=== PATIENT | female | born 1995 | race Caucasian/White ===

== ENCOUNTER 2017-02-21 20:02 | Emergency (ER) | payer BC ==
[2017-02-21] MEDS ORDERED: Acetaminophen/HYDROcodone 325-7.5 MG Tab PO ONE (20:26)
--- NOTE | 2017-02-21 20:29 | EDM.PDOC ---
ED HPI GENERAL MEDICAL PROBLEM - General Chief Complaint: Upper Extremity Injury/Pain Stated Complaint: PAIN RT ARM/ELBOW Time Seen by Provider: 02/21/17 20:19 - History of Present Illness INITIAL COMMENTS - FREE TEXT/NARRATIVE: HISTORY AND PHYSICAL: History of present illness: The patient is a healthy 21-year-old female who presents after slipping and falling while fishing landing onto her right elbow. She was days from the pain but did not pass out or black out and has no head neck or back pain and no other extremity pain. Prior to these events she was in her usual state of good health and had no systemic issues. The patient is right-hand dominant. She complains of pain at the right elbow which is her primary concern but also some discomfort at the dorsal aspect of her right hand and her clavicle area. She has no forearm pain and no neurosensory changes in her fingers. All other extremities are without tenderness and she did not take anything for the pain prior to coming here. She denies any prior injuries on this extremity. Review of systems: As per history of present illness and below otherwise all systems reviewed and negative. Past medical history: As per history of present illness and as reviewed below otherwise noncontributory. Surgical history: As per history of present illness and as reviewed below otherwise noncontributory. Social history: No reported history of drug or alcohol abuse. Family history: As per history of present illness and as reviewed below otherwise noncontributory. Physical exam: General: Well-developed well-nourished female who is nontoxic and speaking clearly and easily. HEENT: Atraumatic, normocephalic, there is a superficial scratch which looks nonacute underneath her right eye the patient states that have been previously not with this injury, negative for conjunctival pallor or scleral icterus, mucous membranes moist, throat clear, neck supple, nontender, trachea midline. Lungs: Clear to auscultation, breath sounds equal bilaterally, chest nontender. Heart: S1S2, regular in rhythm no overt murmurs Abdomen: Soft, nondistended, nontender. NABS. Pelvis: Stable nontender. Genitourinary: Deferred. Rectal: Deferred. Extremities: Atraumatic appearing throughout all extremities with tenderness at the proximal ulna/olecranon area without chemosis swelling or deformities, tenderness at the dorsal aspect of the proximal hand without any defects deformities ecchymosis or erythema and some minimal tenderness at the right clavicle without any deformities. Neurovascular is intact and all compartments are soft. All other extremities have full range of motion without defects or deficits The legs are, negative for cords or calf pain. Neurovascular unremarkable. Neuro: Awake, alert, oriented. Cranial nerves II through XII unremarkable. Cerebellum unremarkable. Motor and sensory unremarkable throughout. Exam nonfocal. Diagnostics: X-ray right clavicle elbow and hand Therapeutics: Scottie Cosme Impression: Contusion to right elbow hand and clavicle status post fall Definitive disposition and diagnosis as appropriate pending reevaluation and review of above. Right Elbow Pain Score (Numeric/FACES): 8 - Related Data Allergies Allergy/AdvReac Type Severity Reaction Status Date / Time No Known Allergies Allergy Verified 02/21/17 20:11 Home Meds: Home Meds . [No Known Home Meds] 02/21/17 [History] Past Medical History Musculoskeletal History: Reports: Fracture - Past Surgical History Musculoskeletal Surgical History: Reports: Other (see below) Other Musculoskeletal Surgeries/Procedures:: surgery left arm Social & Family History - Family History Family Medical History: Noncontributory - Tobacco Use Years of Tobacco use: 3 Packs/Tins Daily: 0.5 - Caffeine Use Caffeine Use: Reports: Coffee Caffeine Use Comment: 1 daily - Recreational Drug Use Recreational Drug Use: No Review of Systems - Review of Systems Review Of Systems: ROS reveals no pertinent complaints other than HPI. Trauma Exam - Physical Exam Exam: See Below (See dictation) Course - Vital Signs Last Recorded V/S: Last Vital Signs Temp 36.8 C 02/21/17 20:11 Pulse 84 02/21/17 20:11 Resp 18 02/21/17 20:11 BP 129/75 02/21/17 20:11 Pulse Ox 100 02/21/17 20:11 - Orders/Labs/Meds Orders: Active Orders 24 hr Category Date Time Status Clavicle Rt [CR] Stat Exams 02/21/17 20:25 Taken Elbow Min 3V Rt [CR] Stat Exams 02/21/17 20:25 Taken Hand Comp Min 3V Rt [CR] Stat Exams 02/21/17 20:25 Taken Meds: Medications Discontinued Medications Generic Name Dose Route Start Last Admin Trade Name Freq PRN Reason Stop Dose Admin Hydrocodone Bitart/Acetaminophen 1 tab 02/21/17 20:26 02/21/17 20:36 [facility] 325-7.5 Mg PO 02/21/17 20:27 1 tab ONETIME ONE Administration Departure - Departure Time of Disposition: 21:06 Disposition: Home, Self-Care 01 Condition: good Clinical Impression: Contusion of hand Qualifiers: Encounter type: initial encounter Laterality: right Qualified Code(s): S60.221A - Contusion of right hand, initial encounter Contusion of elbow Qualifiers: Encounter type: initial encounter Laterality: right Qualified Code(s): S50.01XA - Contusion of right elbow, initial encounter - Discharge Information Forms: ED Department Discharge Additional Instructions: The following information is given to patients seen in the emergency department who are being discharged to home. This information is to outline your options for follow-up care. We provide all patients seen in our emergency department with a follow-up referral. The need for follow-up, as well as the timing and circumstances, are variable depending upon the specifics of your emergency department visit. If you don't have a primary care physician on staff, we will provide you with a referral. We always advise you to contact your personal physician following an emergency department visit to inform them of the circumstance of the visit and for follow-up with them and/or the need for any referrals to a consulting specialist. The emergency department will also refer you to a specialist when appropriate. This referral assures that you have the opportunity for followup care with a specialist. All of these measure are taken in an effort to provide you with optimal care, which includes your followup. Under all circumstances we always encourage you to contact your private physician who remains a resource for coordinating your care. When calling for followup care, please make the office aware that this follow-up is from your recent emergency room visit. If for any reason you are refused follow-up, please contact the [facility] emergency department at and ask to speak to the emergency department charge nurse. [facility] Primary care- Internal Medicine and Family [facility] [address] [place] [id number] [facility] Specialty Care--Orthopedic clinic Professional Building [address] [place] [id number] Use sling for the next 3 days but intermittently please remove and move around so that the area does not become stiff. Ice and elevate as much as possible. Use [id number] medications such as Tylenol or ibuprofen for pain. Please call and followup with orthopedics clinic or primary care and returned to the ER as needed and as discussed - My Orders Last 24 Hours: My Active Orders 02/21/17 20:25 Clavicle Rt [CR] Stat Elbow Min 3V Rt [CR] Stat Hand Comp Min 3V Rt [CR] Stat - Assessment/Plan Last 24 Hours: My Active Orders 02/21/17 20:25 Clavicle Rt [CR] Stat Elbow Min 3V Rt [CR] Stat Hand Comp Min 3V Rt [CR] Stat
[2017-02-21 21:20] VITALS: BP 125/70
--- NOTE | 2017-02-22 13:52 | CR ---
EXAM DATE: 02/21/17 PATIENT'S AGE: 21 Patient: PREET YUN Facility: [place], [place] Site . Site : 1996 Study: XRay Extremity Right elbow [id number]/10/2017 8:56:20 PM Ordering Physician: Peyman Brito Final Report: INDICATION: Trauma. Patient fell. COMPARISON: none TECHNIQUE: Three-view right elbow FINDINGS: The bones are anatomically aligned. There is no evidence of fracture, erosion or intrinsic bone lesion. There is no evidence of displacement of the posterior fat pad. IMPRESSION: Negative right elbow. Dictated by Vic Felton MD @ Feb 21 2017 8:57PM (Electronic Signature) Report Signed by Proxy. TRICIA
--- NOTE | 2017-02-22 13:54 | CR ---
EXAM DATE: 02/21/17 PATIENT'S AGE: 21 Patient: PREET YUN Facility: [place], [place] Site . Site : 1996 Study: XRay Extremity Right HAND [id number]/10/2017 8:57:01 PM Ordering Physician: Peyman Brito Final Report: INDICATION: Trauma, patient fell. TECHNIQUE: Hand radiograph 3 views COMPARISON: None FINDINGS: Bones: Alignment is normal. No acute fractures or aggressive osseous lesions seen. Joint spaces: The carpal and metacarpal-phalangeal joints are unremarkable in appearance. The interphalangeal joints are normal in appearance. Soft tissues: Unremarkable. No radiopaque foreign bodies are noted. IMPRESSION: 1. Negative right hand series. Dictated by Zane Lindsey MD @ 02/21/2017 9:00:53 PM Dictated by: Zane Lindsey MD @ 02/21/2017 21:00:59 (Electronic Signature) Report Signed by Proxy. TRICIA
--- NOTE | 2017-02-22 13:54 | CR ---
EXAM DATE: 02/21/17 PATIENT'S AGE: 21 Patient: PREET YUN Facility: [place], [place] Site . Site : 1995 Study: XRay Shoulder Right CLAVICLE [id number]/10/2017 8:57:50 PM Ordering Physician: Peyman Brito Final Report: INDICATION: Shoulder pain TECHNIQUE: Clavicle radiographs 2 views COMPARISON: None FINDINGS: Bones: Alignment is normal. No acute fractures or aggressive osseous lesions seen. Joint spaces: The glenohumeral joint is unremarkable. The acromioclavicular (AC ) joint is normal in appearance. The visualized sternoclavicular joint is normal in appearance. Soft tissues: The visualized hemithorax is unremarkable in appearance. IMPRESSION: 1. No acute right clavicle fracture or disruption of the right AC joint. Dictated by Zane Lindsey MD @ 02/21/2017 9:03:21 PM Dictated by: Zane Lindsey MD @ 02/21/2017 21:03:30 (Electronic Signature) Report Signed by Proxy. [facility] CENTERHeri
== END 2017-02-21 21:18 | disposition home or self-care (01) ==
LOC: MW.ED 20:02
DX: S50.01XA Contusion of right elbow, initial encounter (principal); S60.221A Contusion of right hand, initial encounter; Z98.890 Other specified postprocedural states; W01.0XXA Fall on same level from slipping, tripping and stumbling without subsequent striking against object, initial encounter; Y93.89 Activity, other specified
CPT/HCPCS: 73000; 73080; 73130; 99283; A9270

== ENCOUNTER 2017-06-19 07:13 | Emergency (ER) | payer BC ==
[2017-06-19] MEDS ORDERED: Sodium Chloride 0.9% 1,000 ML IV ONE (07:33)
[2017-06-19] MEDS ORDERED: Sodium Chloride 0.9% 10 ML Syringe FLUSH PRN (07:33)
[2017-06-19] MEDS ORDERED: Ketorolac 30 MG/ML SDV IVPUSH ONE (07:33)
[2017-06-19] MEDS ORDERED: Sodium Chloride 0.9% 2.5 ML Syringe FLUSH PRN (07:33)
--- NOTE | 2017-06-19 07:37 | EDM.PDOC ---
ED HPI GENERAL MEDICAL PROBLEM - General Chief Complaint: Abdominal Pain Stated Complaint: ABDOMINAL PAIN Time Seen by Provider: 06/19/17 07:19 - History of Present Illness INITIAL COMMENTS - FREE TEXT/NARRATIVE: HISTORY AND PHYSICAL: History of present illness: The patient is a 22-year-old female with no stated medical or surgical history and presents with complaints of persistent episodic right upper quadrant pain associated with bloating has been ongoing since October, 9 months so far. She's been seen at the walk-in clinic several times and was also connected with a provider at [facility], ; he saw her in May and ordered a gallbladder ultrasound which was performed on June 01 and those results of been reviewed by me. The ultrasound indicated no stones no gallbladder wall thickening or pericholecystic fluid with the common bile duct was borderline at 6 mm. The patient had no blood work at that time and says that she has not scheduled a repeat appointment with him. The patient was referred to [facility] in [place] For allergy testing for gluten issues which she did on Sunday and she was told that everything was negative. Again she does not have follow- up scheduled. She presents today to the ED with persistent episodic right upper abdominal pain which she describes as crampy deep and dull. She says she has been feeling more bloated and nauseated over the last 2 days She says she has episodes of pain mostly after eating and it never awakens her from sleep. She says it does not last for prolonged period time goes away on its own. She does not connected to any specific foods and she does not take any aqyq-bll-dsspipe medications for it. There is no fever chills vomiting or diarrhea associated with it and she says that the remainder of her upper abdomen is just "tender". Patient's last bowel movement was yesterday but she says she is more on the constipated side in general and it is not black or bloody. Review of systems: As per history of present illness and below otherwise all systems reviewed and negative. Past medical history: As per history of present illness and as reviewed below otherwise noncontributory. Surgical history: As per history of present illness and as reviewed below otherwise noncontributory. Social history: No reported history of drug or alcohol abuse. Family history: As per history of present illness and as reviewed below otherwise noncontributory. Physical exam: General: Well-developed thin female who is nontoxic and vital signs of been reviewed by me. She moves easily in the ED without distress HEENT: Atraumatic, normocephalic, pupils reactive, negative for conjunctival pallor or scleral icterus, mucous membranes moist, throat clear, neck supple, nontender, trachea midline. Lungs: Clear to auscultation, breath sounds equal bilaterally, chest nontender. Heart: S1S2, regular, negative for clicks, rubs, or JVD. Abdomen: Soft, nondistended, minimally tender on deep palpation in the right upper and epigastric areas there is no rebound or guarding and bowel sounds are hypoactive. Negative for masses or hepatosplenomegaly. Negative for costovertebral tenderness. Pelvis: Stable nontender. Genitourinary: Deferred. Rectal: Deferred. Extremities: Atraumatic, negative for cords or calf pain. Neurovascular unremarkable. Neuro: Awake, alert, oriented. Cranial nerves II through XII unremarkable. Cerebellum unremarkable. Motor and sensory unremarkable throughout. Exam nonfocal. Diagnostics: CBC CMP amylase lipase UA UCG CT scan of the abdomen and pelvis Therapeutics: IV fluids Toradol Patient is aware of all testing results and I have discussed with her follow- up. She says that she is not connected with [facility] and that she would be willing to follow-up in our clinic. I will get her an appointment with one of our clinic providers and give her a prescription for a HIDA scan as that is the one test that has not been performed that could be related to her pain. She is aware of need to eat a low-fat diet and to keep her appointments and to schedule the HIDA scan. I will give her tramadol and Zofran to use as needed for home. Advised on reasons to return Patient was given an appointment to see Dr. Hu in the clinic this at 2 PM Impression: Episodic upper abdominal pain subacute Definitive disposition and diagnosis as appropriate pending reevaluation and review of above. Right Upper Epigastric Pain Score (Numeric/FACES): 8 - Related Data Allergies Allergy/AdvReac Type Severity Reaction Status Date / Time No Known Allergies Allergy Verified 02/21/17 20:11 Home Meds: Home Meds Anexity Med 1 tab PO ASDIRECTED 06/19/17 [History] L.acidoph,Paracasei, B.lactis [Probiotic] 1 each PO DAILY 06/19/17 [History] Norethindrone-E.estradiol-Iron [Tri-Legest Fe-28 Day] 1 each PO DAILY 06/19/17 [ History] Past Medical History - Past Health History Medical/Surgical History: Denies Medical/Surgical History Musculoskeletal History: Reports: Fracture - Past Surgical History Musculoskeletal Surgical History: Reports: Other (See Below) Social & Family History - Family History Family Medical History: Noncontributory - Tobacco Use Smoking Status *Q: Never Smoker Years of Tobacco use: 3 Packs/Tins Daily: 0.5 Second Hand Smoke Exposure: No - Caffeine Use Caffeine Use: Reports: Coffee Caffeine Use Comment: 1 daily - Recreational Drug Use Recreational Drug Use: No ED ROS GENERAL - Review of Systems Review Of Systems: ROS reveals no pertinent complaints other than HPI. ED EXAM, GENERAL - Physical Exam Exam: See Below (See dictation) Course - Vital Signs Last Recorded V/S: Last Vital Signs Temp 36.3 C 06/19/17 10:01 Pulse 69 06/19/17 10:01 Resp 18 06/19/17 10:01 BP 113/72 06/19/17 10:01 Pulse Ox 100 06/19/17 10:01 - Orders/Labs/Meds Orders: Active Orders 24 hr Category Date Time Status Sodium Chloride 0.9% [Saline Flush] Med 06/19/17 07:33 Active 10 ml FLUSH ASDIRECTED PRN Sodium Chloride 0.9% [Saline Flush] Med 06/19/17 07:33 Active 2.5 ml FLUSH ASDIRECTED PRN Saline Lock Insert [OM.PC] Stat Oth 06/19/17 07:32 Ordered Medication Orders Sodium Chloride (Saline Flush) 10 ml FLUSH ASDIRECTED PRN PRN Reason: Keep Vein Open Sodium Chloride (Saline Flush) 2.5 ml FLUSH ASDIRECTED PRN PRN Reason: Keep Vein Open Labs: Laboratory Tests 06/19/17 06/19/17 06/19/17 Range/Units 07:55 07:55 08:09 WBC 7.68 (4.0-11.0) K/uL RBC 4.80 (4.30-5.90) M/uL Hgb 13.1 (12.0-16.0) g/dL Hct 39.8 (36.0-46.0) % MCV 82.9 (80.0-98.0) fL MCH 27.3 (27.0-32.0) pg MCHC 32.9 (31.0-37.0) g/dL RDW Std Deviation 42.6 (28.0-62.0) fl RDW Coeff of Stephanie 14 (11.0-15.0) % Plt Count 324 (150-400) K/uL MPV 10.10 (7.40-12.00) fL Neut % (Auto) 61.5 (48.0-80.0) % Lymph % (Auto) 29.7 (16.0-40.0) % [place] % (Auto) 7.3 (0.0-15.0) % Eos % (Auto) 1.2 (0.0-7.0) % Baso % (Auto) 0.3 (0.0-1.5) % Neut # (Auto) 4.7 (1.4-5.7) K/uL Lymph # (Auto) 2.3 (0.6-2.4) K/uL [place] # (Auto) 0.6 (0.0-0.8) K/uL Eos # (Auto) 0.1 (0.0-0.7) K/uL Baso # (Auto) 0.0 (0.0-0.1) K/uL Nucleated RBC % 0.0 /100WBC Nucleated RBCs # 0 K/uL Sodium 138 (136-146) mmol/L Potassium 3.8 (3.5-5.1) mmol/L Chloride 104 (98-110) mmol/L Carbon Dioxide 21 (21-31) mmol/L BUN 10 (6.0-23.0) mg/dL Creatinine 0.9 (0.6-1.5) mg/dL Est Cr Clr Drug Dosing 92.56 mL/min Estimated GFR (MDRD) > 60.0 ml/min Glucose 99 (60-110) mg/dL Calcium 9.7 (8.8-10.8) mg/dL Total Bilirubin 0.2 (0.1-1.5) mg/dL AST 16 (5-40) IU/L ALT 15 (8-54) IU/L Alkaline Phosphatase 70 (40-150) Total Protein 8.2 H (6.0-8.0) g/dL Albumin 4.4 (3.5-5.0) g/dL Globulin 3.8 H (2.0-3.5) g/dL Albumin/Globulin Ratio 1.2 L (1.3-2.8) Amylase 44 (10-90) U/L Lipase 15 (7-80) U/L Urine Color Urine Appearance Urine pH (5.0-8.0) Ur Specific [place] (1.001-1.035) Urine Protein (NEGATIVE) mg/dL Urine Glucose (UA) (NEGATIVE) mg/dL Urine Ketones (NEGATIVE) mg/dL Urine Occult Blood (NEGATIVE) Urine Nitrite (NEGATIVE) Urine Bilirubin (NEGATIVE) Urine Urobilinogen (<2.0) EU/dL Ur Leukocyte Esterase (NEGATIVE) Urine RBC (0-2/HPF) Urine WBC (0-5/HPF) Ur Epithelial Cells (NONE-FEW) Calcium Oxalate Crystal (NEGATIVE) Urine Bacteria (NEGATIVE) Urine Mucus (NONE-MOD) Urine HCG, Qual NEGATIVE (NEGATIVE) 06/19/17 Range/Units 08:09 WBC (4.0-11.0) K/uL RBC (4.30-5.90) M/uL Hgb (12.0-16.0) g/dL Hct (36.0-46.0) % MCV (80.0-98.0) fL MCH (27.0-32.0) pg MCHC (31.0-37.0) g/dL RDW Std Deviation (28.0-62.0) fl RDW Coeff of Stephanie (11.0-15.0) % Plt Count (150-400) K/uL MPV (7.40-12.00) fL Neut % (Auto) (48.0-80.0) % Lymph % (Auto) (16.0-40.0) % [place] % (Auto) (0.0-15.0) % Eos % (Auto) (0.0-7.0) % Baso % (Auto) (0.0-1.5) % Neut # (Auto) (1.4-5.7) K/uL Lymph # (Auto) (0.6-2.4) K/uL [place] # (Auto) (0.0-0.8) K/uL Eos # (Auto) (0.0-0.7) K/uL Baso # (Auto) (0.0-0.1) K/uL Nucleated RBC % /100WBC Nucleated RBCs # K/uL Sodium (136-146) mmol/L Potassium (3.5-5.1) mmol/L Chloride (98-110) mmol/L Carbon Dioxide (21-31) mmol/L BUN (6.0-23.0) mg/dL Creatinine (0.6-1.5) mg/dL Est Cr Clr Drug Dosing mL/min Estimated GFR (MDRD) ml/min Glucose (60-110) mg/dL Calcium (8.8-10.8) mg/dL Total Bilirubin (0.1-1.5) mg/dL AST (5-40) IU/L ALT (8-54) IU/L Alkaline Phosphatase (40-150) Total Protein (6.0-8.0) g/dL Albumin (3.5-5.0) g/dL Globulin (2.0-3.5) g/dL Albumin/Globulin Ratio (1.3-2.8) Amylase (10-90) U/L Lipase (7-80) U/L Urine Color YELLOW Urine Appearance CLEAR Urine pH 5.5 (5.0-8.0) Ur Specific [place] >= 1.030 (1.001-1.035) Urine Protein NEGATIVE (NEGATIVE) mg/dL Urine Glucose (UA) NEGATIVE (NEGATIVE) mg/dL Urine Ketones NEGATIVE (NEGATIVE) mg/dL Urine Occult Blood NEGATIVE (NEGATIVE) Urine Nitrite NEGATIVE (NEGATIVE) Urine Bilirubin NEGATIVE (NEGATIVE) Urine Urobilinogen 0.2 (<2.0) EU/dL Ur Leukocyte Esterase NEGATIVE (NEGATIVE) Urine RBC NONE SEEN (0-2/HPF) Urine WBC 0-1 (0-5/HPF) Ur Epithelial Cells FEW (NONE-FEW) Calcium Oxalate Crystal MODERATE (NEGATIVE) Urine Bacteria FEW (NEGATIVE) Urine Mucus LIGHT (NONE-MOD) Urine HCG, Qual (NEGATIVE) Meds: Medications Generic Name Dose Route Start Last Admin Trade Name Freq PRN Reason Stop Dose Admin Sodium Chloride 10 ml 06/19/17 07:33 Saline Flush FLUSH ASDIRECTED PRN Keep Vein Open Sodium Chloride 2.5 ml 06/19/17 07:33 Saline Flush FLUSH ASDIRECTED PRN Keep Vein Open Discontinued Medications Generic Name Dose Route Start Last Admin Trade Name Harsha PRN Reason Stop Dose Admin Sodium Chloride 1,000 mls @ 999 mls/hr 06/19/17 07:33 06/19/17 08:01 Normal Saline IV 06/19/17 08:33 999 mls/hr STAT ONE Administration Iopamidol 85 ml 06/19/17 08:49 06/19/17 08:49 Isovue Multipack-370 (76%) IVPUSH 06/19/17 08:50 85 ml ONETIME STA Administration Ketorolac Tromethamine 30 mg 06/19/17 07:33 06/19/17 08:04 Toradol IVPUSH 06/19/17 07:34 30 mg ONETIME ONE Administration Ondansetron HCl 4 mg 06/19/17 07:39 06/19/17 08:04 Zofran IVPUSH 06/19/17 07:40 4 mg ONETIME ONE Administration Departure - Departure Time of Disposition: 09:53 Disposition: Home, Self-Care 01 Condition: Good Clinical Impression: Abdominal pain Qualifiers: Abdominal location: right upper quadrant Qualified Code(s): R10.11 - Right upper quadrant pain - Discharge Information Referrals: PCP,None [Primary Care Provider] - Forms: ED Department Discharge Additional Instructions: The following information is given to patients seen in the emergency department who are being discharged to home. This information is to outline your options for follow-up care. We provide all patients seen in our emergency department with a follow-up referral. The need for follow-up, as well as the timing and circumstances, are variable depending upon the specifics of your emergency department visit. If you don't have a primary care physician on staff, we will provide you with a referral. We always advise you to contact your personal physician following an emergency department visit to inform them of the circumstance of the visit and for follow-up with them and/or the need for any referrals to a consulting specialist. The emergency department will also refer you to a specialist when appropriate. This referral assures that you have the opportunity for followup care with a specialist. All of these measure are taken in an effort to provide you with optimal care, which includes your followup. Under all circumstances we always encourage you to contact your private physician who remains a resource for coordinating your care. When calling for followup care, please make the office aware that this follow-up is from your recent emergency room visit. If for any reason you are refused follow-up, please contact the [facility] emergency department at and ask to speak to the emergency department charge nurse. [facility] Primary care- Internal Medicine and Family [address] [address] Please eat a low-fat diet and avoid caffeinated products and spicy foods. Please schedule the HIDA scan as we discussed. Return to ER as needed as discussed. Use all medications as prescribed and please keep your appointment in the clinic as directed. Your appointment is in our clinic with Dr. Hu this June 21 at 2 PM. Please arrive 15 minutes early to complete paperwork - My Orders Last 24 Hours: My Active Orders 06/19/17 07:32 Saline Lock Insert [OM.PC] Stat 06/19/17 07:33 Sodium Chloride 0.9% [Saline Flush] 10 ml FLUSH ASDIRECTED PRN Sodium Chloride 0.9% [Saline Flush] 2.5 ml FLUSH ASDIRECTED PRN - Assessment/Plan Last 24 Hours: My Active Orders 06/19/17 07:32 Saline Lock Insert [OM.PC] Stat 06/19/17 07:33 Sodium Chloride 0.9% [Saline Flush] 10 ml FLUSH ASDIRECTED PRN Sodium Chloride 0.9% [Saline Flush] 2.5 ml FLUSH ASDIRECTED PRN
[2017-06-19] MEDS ORDERED: Ondansetron 4 MG/2 ML SDV IVPUSH ONE (07:39)
[2017-06-19 08:42] LABS: CHLORIDE,CL 104 mmol/L (98-110); SODIUM,NA 138 mmol/L (136-146)
[2017-06-19] MEDS ORDERED: Iopamidol 755 MG/ML 500 ML Multipack Bottle IVPUSH STA (08:49)
--- NOTE | 2017-06-19 09:32 | CT ---
CT of the abdomen and pelvis with contrast. HISTORY: Pain TECHNIQUE: Axial CT images were obtained of the abdomen and pelvis following administration of 85 mL of Isovue-370 in the left antecubital fossa without complication. Coronal and sagittal reconstruction s obtained. FINDINGS: The lung bases are clear, no pleural effusion. The liver, spleen, adrenal glands, and pancreas appear unremarkable. The gallbladder is normal. No bu lky retroperitoneal lymphadenopathy or abdominal ascites. The kidneys enhance and function symmetrically without evidence of obstructive uropathy. The large and small bowel are normal in caliber without evidence of obstruction. No focal pericolonic inflammation or stranding. The appendix is normal in caliber. Uterus and ovaries appear normal. No s ignificant free pelvic fluid. The urinary bladder is normal. There is a minimal fat-containing umbili paty hernia. No suspicious osseous abnormalities. L5 is a transitional type vertebra on the left. IMPRESSION: 1. No acute findings within the abdomen or pelvis.
[2017-06-19 10:27] VITALS: BP 120/78
== END 2017-06-19 10:26 | disposition home or self-care (01) ==
LOC: MW.ED 07:13
DX: R10.11 Right upper quadrant pain (principal)
CPT/HCPCS: 36415; 74177; 80053; 81001; 81025; 82150; 83690; 85025; 96361; 96374; 96375; 99284; J1885; J2405; J7040; Q9967

== ENCOUNTER 2019-01-01 17:27 | Emergency (ER) | payer BC ==
--- NOTE | 2019-01-01 17:36 | EDM.PDOC ---
ED HPI GENERAL MEDICAL PROBLEM - General Chief Complaint: Abdominal Pain Stated Complaint: ABDOMINAL PAIN Time Seen by Provider: 01/01/19 17:32 Source of Information: Reports: Patient History Limitations: Reports: No Limitations - History of Present Illness INITIAL COMMENTS - FREE TEXT/NARRATIVE: HISTORY AND PHYSICAL: History of present illness: Patient is a 23-year-old female who presents to the ED today with lower abdominal pain. Patient states for the past 2 weeks she has not been feeling well and has had a low grade abdominal pain. Patient states today the pain has worsened and she rates her pain a 9 out of 10. Patient states she had a menstrual cycle about a week ago but has noticed some orange vaginal discharged today. Patient states she is sexually active and not on control or use any means of control. Patient states she also has been feeling nauseous. She has not had any vomiting. Patient's states she's also had a decrease in appetite over the past 2 weeks. She states she has not eaten or drank anything today. Patient states she's also had an increase in frequency of urination but no burning or blood in her urine. Patient states she is sexually active with her boyfriend of 2 years and has had no new sexual partners. She does states she has a history of bacterial vaginosis that is "known to spread to her bloodstream." Patient states that she is also felt more gassy and bloated and feels like her stomach is sticking out further than normal. She states she has been able to pass gas. Her last bowel movement was this morning. She denies fever, chills, shortness of breath, cough, burning with urination, blood in her stools, constipation, palpitations, headache, or all other GI, , respiratory, cardiovascular concerns. Patient denies any health history. Review of systems: As per history of present illness and below otherwise all systems reviewed and negative. Past medical history: As per history of present illness and as reviewed below otherwise noncontributory. Surgical history: As per history of present illness and as reviewed below otherwise noncontributory. Social history: See social history for further information Family history: As per history of present illness and as reviewed below otherwise noncontributory. Physical exam: General: Patient is alert, oriented, and in no acute distress. She is sitting comfortably on exam table. HEENT: Atraumatic, normocephalic, pupils equal and reactive bilaterally, negative for conjunctival pallor or scleral icterus, mucous membranes moist, TMs normal bilaterally, throat clear, neck supple, nontender, trachea midline. No drooling or trismus noted. No meningeal signs. No hot potato voice noted. Lungs: Clear to auscultation, breath sounds equal bilaterally, chest nontender. Heart: S1S2, regular rate and rhythm without overt murmur Abdomen: Moderate pain to palpation of the left lower and right lower quadrants. Soft, distended. Negative for masses or hepatosplenomegaly. Negative for costovertebral tenderness. Pelvis: Stable nontender. Genitourinary: External genitalia is within normal limits. The vaginal canal does have dark brown discharge. Cervical os is closed. Negative cervical motion tenderness. Patient does have [id number] pain to palpation of the uterus which is approximately 6-8 weeks in size. Rectal: Deferred. Skin: Intact, warm, dry. No lesions or rashes noted. Extremities: Atraumatic, negative for cords or calf pain. Neurovascular unremarkable. Neuro: Awake, alert, oriented. Cranial nerves II through XII unremarkable. Cerebellum unremarkable. Motor and sensory unremarkable throughout. Exam nonfocal. Notes: CT shows no acute findings in the abdomen or pelvis. Normal appendix. There is gallbladder wall thickening or pericholecystic fluid. Does recommend a follow- up ultrasound if indicated. Dr. Ireland was consulted on this patient. She is agreeable that this patient may follow-up as an outpatient for further evaluation and management. We'll place her on Cipro and provide tramadol for pain management. Dietary and supportive care measures were reviewed and discussed. Voices understanding and is agreeable to plan of care. Denies any further questions or concerns at this time. Diagnostics: CBC, CMP, UA, urine hCG Therapeutics: saline, Zofran, Toradol Prescription: Cipro Tramadol Impression: Abdominal Pain Plan: 1. Clear liquid diet over the next 24 hours and advance as tolerated. Please follow dietary restrictions as we discussed 2. Please take the medications that have been prescribed as directed. 3. Follow-up with the general surgeon as we discussed. Follow up with [facility] [employer] TECHNICIAN as we discussed. Return to the ED as needed and as discussed. Definitive disposition and diagnosis as appropriate pending reevaluation and review of above. Abdominal Pain Score (Numeric/FACES): 8 - Related Data Allergies Allergy/AdvReac Type Severity Reaction Status Date / Time No Known Allergies Allergy Verified 01/01/19 17:37 Home Meds: Home Meds . [No Known Home Meds] 01/01/19 [History] Past Medical History - Past Health History Medical/Surgical History: Denies Medical/Surgical History Musculoskeletal History: Reports: Fracture - Past Surgical History Musculoskeletal Surgical History: Reports: Other (See Below) Social & Family History - Family History Family Medical History: Noncontributory - Caffeine Use Caffeine Use: Reports: Coffee Caffeine Use Comment: 1 daily ED ROS GENERAL - Review of Systems Review Of Systems: ROS reveals no pertinent complaints other than HPI. ED EXAM, GI/ABD - Physical Exam Exam: See Below (See dictation) Course - Vital Signs Last Recorded V/S: Last Vital Signs Temp 98.0 F 01/01/19 17:34 Pulse 64 01/01/19 17:34 Resp 18 01/01/19 17:34 BP 132/86 01/01/19 17:34 Pulse Ox 100 01/01/19 17:34 - Orders/Labs/Meds Orders: Active Orders 24 hr Category Date Time Status CHLAMYDIA AND GONORRHEA BY [facility] Stat Lab 01/01/19 18:45 Received Labs: Laboratory Tests 01/01/19 01/01/19 01/01/19 Range/Units 17:45 17:45 17:52 WBC 7.22 (4.0-11.0) K/uL RBC 4.44 (4.30-5.90) M/uL Hgb 13.4 (12.0-16.0) g/dL Hct 39.2 (36.0-46.0) % MCV 88.3 (80.0-98.0) fL MCH 30.2 (27.0-32.0) pg MCHC 34.2 (31.0-37.0) g/dL RDW Std Deviation 43.1 (28.0-62.0) fl RDW Coeff of Stephanie 13 (11.0-15.0) % Plt Count 266 (150-400) K/uL MPV 9.80 (7.40-12.00) fL Neut % (Auto) 57.7 (48.0-80.0) % Lymph % (Auto) 31.0 (16.0-40.0) % Crockett % (Auto) 10.2 (0.0-15.0) % Eos % (Auto) 1.0 (0.0-7.0) % Baso % (Auto) 0.1 (0.0-1.5) % Neut # (Auto) 4.2 (1.4-5.7) K/uL Lymph # (Auto) 2.2 (0.6-2.4) K/uL Crockett # (Auto) 0.7 (0.0-0.8) K/uL Eos # (Auto) 0.1 (0.0-0.7) K/uL Baso # (Auto) 0.0 (0.0-0.1) K/uL Nucleated RBC % 0.0 /100WBC Nucleated RBCs # 0 K/uL Sodium (136-145) mmol/L Potassium (3.5-5.1) mmol/L Chloride (98-107) mmol/L Carbon Dioxide (21.0-32.0) mmol/L BUN (7.0-18.0) mg/dL Creatinine (0.6-1.0) mg/dL Est Cr Clr Drug Dosing mL/min Estimated GFR (MDRD) ml/min Glucose (74-106) mg/dL Calcium (8.5-10.1) mg/dL Total Bilirubin (0.2-1.0) mg/dL AST (15-37) IU/L ALT (14-63) IU/L Alkaline Phosphatase (46-116) U/L Total Protein (6.4-8.2) g/dL Albumin (3.4-5.0) g/dL Globulin (2.6-4.0) g/dL Albumin/Globulin Ratio (0.9-1.6) Lipase (73-393) U/L Urine Color YELLOW Urine Appearance CLEAR Urine pH 6.5 (5.0-8.0) Ur Specific Delta 1.010 (1.001-1.035) Urine Protein NEGATIVE (NEGATIVE) mg/dL Urine Glucose (UA) NEGATIVE (NEGATIVE) mg/dL Urine Ketones NEGATIVE (NEGATIVE) mg/dL Urine Occult Blood SMALL H (NEGATIVE) Urine Nitrite NEGATIVE (NEGATIVE) Urine Bilirubin NEGATIVE (NEGATIVE) Urine Urobilinogen 0.2 (<2.0) EU/dL Ur Leukocyte Esterase NEGATIVE (NEGATIVE) Urine RBC 2-3 (0-2/HPF) Urine WBC 0-1 (0-5/HPF) Ur Epithelial Cells FEW (NONE-FEW) Urine Bacteria FEW (NEGATIVE) Urine HCG, Qual NEGATIVE (NEGATIVE) Samantha species DNA (NEGATIVE) Gardnerella DNA Probe (NEGATIVE) Trichomonas DNA Probe (NEGATIVE) 01/01/19 01/01/19 01/01/19 Range/Units 17:52 18:15 18:45 WBC (4.0-11.0) K/uL RBC (4.30-5.90) M/uL Hgb (12.0-16.0) g/dL Hct (36.0-46.0) % MCV (80.0-98.0) fL MCH (27.0-32.0) pg MCHC (31.0-37.0) g/dL RDW Std Deviation (28.0-62.0) fl RDW Coeff of Stephanie (11.0-15.0) % Plt Count (150-400) K/uL MPV (7.40-12.00) fL Neut % (Auto) (48.0-80.0) % Lymph % (Auto) (16.0-40.0) % Crockett % (Auto) (0.0-15.0) % Eos % (Auto) (0.0-7.0) % Baso % (Auto) (0.0-1.5) % Neut # (Auto) (1.4-5.7) K/uL Lymph # (Auto) (0.6-2.4) K/uL Crockett # (Auto) (0.0-0.8) K/uL Eos # (Auto) (0.0-0.7) K/uL Baso # (Auto) (0.0-0.1) K/uL Nucleated RBC % /100WBC Nucleated RBCs # K/uL Sodium 139 (136-145) mmol/L Potassium 3.9 (3.5-5.1) mmol/L Chloride 102 (98-107) mmol/L Carbon Dioxide 29.3 (21.0-32.0) mmol/L BUN 14 (7.0-18.0) mg/dL Creatinine 0.8 (0.6-1.0) mg/dL Est Cr Clr Drug Dosing 99.25 mL/min Estimated GFR (MDRD) > 60.0 ml/min Glucose 81 (74-106) mg/dL Calcium 9.4 (8.5-10.1) mg/dL Total Bilirubin 0.4 (0.2-1.0) mg/dL AST 19 (15-37) IU/L ALT 27 (14-63) IU/L Alkaline Phosphatase 75 (46-116) U/L Total Protein 8.1 (6.4-8.2) g/dL Albumin 4.3 (3.4-5.0) g/dL Globulin 3.8 (2.6-4.0) g/dL Albumin/Globulin Ratio 1.1 (0.9-1.6) Lipase 101 (73-393) U/L Urine Color Urine Appearance Urine pH (5.0-8.0) Ur Specific Delta (1.001-1.035) Urine Protein (NEGATIVE) mg/dL Urine Glucose (UA) (NEGATIVE) mg/dL Urine Ketones (NEGATIVE) mg/dL Urine Occult Blood (NEGATIVE) Urine Nitrite (NEGATIVE) Urine Bilirubin (NEGATIVE) Urine Urobilinogen (<2.0) EU/dL Ur Leukocyte Esterase (NEGATIVE) Urine RBC (0-2/HPF) Urine WBC (0-5/HPF) Ur Epithelial Cells (NONE-FEW) Urine Bacteria (NEGATIVE) Urine HCG, Qual (NEGATIVE) Samantha species DNA NEGATIVE (NEGATIVE) Gardnerella DNA Probe NEGATIVE (NEGATIVE) Trichomonas DNA Probe NEGATIVE (NEGATIVE) Meds: Medications Discontinued Medications Generic Name Dose Route Start Last Admin Trade Name Freq PRN Reason Stop Dose Admin Sodium Chloride 1,000 mls @ 999 mls/hr 01/01/19 17:45 01/01/19 17:55 Normal Saline IV 01/01/19 18:45 999 mls/hr STAT ONE Administration Iopamidol 80 ml 01/01/19 19:16 01/01/19 19:16 Isovue Multipack-370 (76%) IVPUSH 01/01/19 19:17 80 ml ONETIME ONE Administration Ketorolac Tromethamine 30 mg 01/01/19 17:45 01/01/19 17:58 Toradol IVPUSH 01/01/19 17:46 30 mg ONETIME ONE Administration Ondansetron HCl 4 mg 01/01/19 17:45 01/01/19 17:58 Zofran IVPUSH 01/01/19 17:46 4 mg ONETIME ONE Administration Departure - Departure Time of Disposition: 20:09 Disposition: Home, Self-Care 01 Clinical Impression: Abdominal pain Qualifiers: Abdominal location: right upper quadrant Qualified Code(s): R10.11 - Right upper quadrant pain - Discharge Information Instructions: Abdominal Pain, Adult, [id number] Referrals: PCP,Unknown [Primary Care Provider] - Forms: ED Department Discharge Additional Instructions: The following information is given to patients seen in the emergency department who are being discharged to home. This information is to outline your options for follow-up care. We provide all patients seen in our emergency department with a follow-up referral. The need for follow-up, as well as the timing and circumstances, are variable depending upon the specifics of your emergency department visit. If you don't have a primary care physician on staff, we will provide you with a referral. We always advise you to contact your personal physician following an emergency department visit to inform them of the circumstance of the visit and for follow-up with them and/or the need for any referrals to a consulting specialist. The emergency department will also refer you to a specialist when appropriate. This referral assures that you have the opportunity for follow-up care with a specialist. All of these measure are taken in an effort to provide you with optimal care, which includes your follow-up. Under all circumstances we always encourage you to contact your private physician who remains a resource for coordinating your care. When calling for follow-up care, please make the office aware that this follow-up is from your recent emergency room visit. If for any reason you are refused follow-up, please contact the [facility] Emergency Department at and asked to speak to the emergency department charge nurse. [facility] [address] [place] [id number] [address] [facility] Specialty Care - General Surgery Professional [address], [address] [place] [address] 1. Clear liquid diet over the next 24 hours and advance as tolerated. Please follow dietary restrictions as we discussed 2. Please take the medications that have been prescribed as directed. 3. Follow-up with the general surgeon as we discussed. Return to the ED as needed and as discussed. - My Orders Last 24 Hours: My Active Orders 01/01/19 18:45 CHLAMYDIA AND GONORRHEA BY [facility] Stat - Assessment/Plan Last 24 Hours: My Active Orders 01/01/19 18:45 CHLAMYDIA AND GONORRHEA BY [facility] Stat
[2019-01-01] MEDS ORDERED: Sodium Chloride 0.9% 1,000 ML IV ONE (17:45)
[2019-01-01] MEDS ORDERED: Ondansetron 4 MG/2 ML SDV IVPUSH ONE (17:45)
[2019-01-01] MEDS ORDERED: Ketorolac 30 MG/ML SDV IVPUSH ONE (17:45)
[2019-01-01 18:31] LABS: CHLORIDE,CL 102 mmol/L (98-107); SODIUM,NA 139 mmol/L (136-145)
[2019-01-01] MEDS ORDERED: Iopamidol 755 MG/ML 500 ML Multipack Bottle IVPUSH ONE (19:16)
--- NOTE | 2019-01-01 20:05 | CT ---
Abdominal pain. TECHNIQUE: Contrast-enhanced CT abdomen and pelvis with 80 mL Isovue-370 coronal sagittal reformat images obtained. Findings : Heart size is normal. The lung bases are clear. Spleen pancreas adrenal glands are unremarkable. Periportal edema. Normal caliber abdominal aorta. Gallbladder wall thickening or pericholecystic fluid. Symmetric enhancement of both kidneys which appear unremarkable. Urinary bladder is unremarkable. Abundant stool in the colon. Normal appendix is seen. T bowel appears unremarkable. No suspicious bony lesions. Impression : 1. No acute findings in the abdomen or pelvis. Normal appendix. 2. Gallbladder wall thickening or pericholecystic fluid. If the patient is having right upper quadrant pain could consider ultrasound. Please note that all CT scans at this facility use dose modulation, iterative reconstruction, and/or weight-based dosing when appropriate to reduce radiation dose to as low as reasonably achievable. Dictated by Marcella Bowie MD @ Jan 01 2019 7:56PM Signed by Dr. Marcella Bowie @ Jan 01 2019 8:04PM
[2019-01-01 20:40] VITALS: BP 112/71
== END 2019-01-01 20:38 | disposition home or self-care (01) ==
LOC: MW.ED 17:27
DX: R10.11 Right upper quadrant pain (principal)
CPT/HCPCS: 36415; 74177; 80053; 81001; 81025; 83690; 85025; 87480; 87491; 87510; 87591; 87660; 96361; 96374; 96375; 99284; J1885; J2405; J7040; Q9967